=== PATIENT | female | born 1965 | race Caucasian/White ===

== ENCOUNTER → 2017-06-17 | Outpatient (CLI) | payer BC ==
[2017-06-17 16:08] LABS: BUN/CREATININE RATIO 19.9 (6.0-26.0); CALCIUM 9.5 mg/dL (8.4-10.2)
== END ==
LOC: LAB 14:39 → RAD 14:39
PROVIDERS: Physician Assistant
DX: M51.16 Intervertebral disc disorders with radiculopathy, lumbar region (principal); Q76.49 Other congenital malformations of spine, not associated with scoliosis; Z79.899 Other long term (current) drug therapy

== ENCOUNTER → 2017-06-20 | Outpatient (CLI) | payer BC | LOC: RAD 15:30 | DX: M51.17 Intervertebral disc disorders with radiculopathy, lumbosacral region (principal); M48.07 Spinal stenosis, lumbosacral region; Z88.8 Allergy status to other drugs, medicaments and biological substances ==

== ENCOUNTER 2017-06-25 23:05 | Emergency (ER) | payer BC ==
[~2017-06-25] VITALS: Ht 165.1 cm; Wt 84.1 kg
[2017-06-25] MEDS ORDERED: LITHIUM CARBON300 M3 PO (23:08)
[2017-06-25] MEDS ORDERED: LOPID600 MG (23:09)
[2017-06-25] MEDS ORDERED: PAXIL10 M1 (23:09)
[2017-06-25] MEDS ORDERED: AMITIZA8 MCG (23:09)
[2017-06-25] MEDS ORDERED: SYNTHROID0.075 MG (23:09)
[2017-06-25] MEDS ORDERED: PROGESTERONE WE1 PO3 (23:09)
[2017-06-25] MEDS ORDERED: PROTONIX20 M1 (23:09)
[2017-06-26] MEDS ORDERED: PERCOCET 325 MG1 TA2 PO (00:46)
[2017-06-26] MEDS ORDERED: KETOROLAC10 MG PO (00:46)
[2017-06-26] MEDS ORDERED: WALKER (00:46)
[2017-06-26 01:00] VITALS: BP 112/70
== END 2017-06-26 01:00 | disposition home or self-care (01) ==
LOC: ED 23:05
DX: M51.16 Intervertebral disc disorders with radiculopathy, lumbar region (principal); M21.371 Foot drop, right foot; F32.9 Major depressive disorder, single episode, unspecified; E03.9 Hypothyroidism, unspecified; K21.9 Gastro-esophageal reflux disease without esophagitis; E78.5 Hyperlipidemia, unspecified
CPT/HCPCS: J1885

== ENCOUNTER → 2017-06-30 | Outpatient (CLI) | payer BC ==
[2017-06-26 01:00] VITALS: BP 112/70
[~2017-06-30] MED LIST: AMITIZA8 MCG; KETOROLAC10 MG PO; LITHIUM CARBON300 M3 PO; LOPID600 MG; PAXIL10 M1; PERCOCET 325 MG1 TA2 PO; PROGESTERONE WE1 PO3; PROTONIX20 M1; SYNTHROID0.075 MG; WALKER
[2017-06-30 12:17] LABS: HEMATOCRIT 43.7 % (37.0-47.0); HEMOGLOBIN 14.1 g/dL (12.5-16.0); MEAN PLATELET VOLUME 10.9 fl (7.4-10.4); RED BLOOD COUNT 4.76 M/mm3 (4.10-5.30); RED CELL DISTRIBUTION WIDTH 13.9 % (11.5-14.5); WHITE BLOOD COUNT 5.7 K/mm3 (4.8-10.8)
[2017-06-30 12:20] LABS: PROTHROMBIN TIME 9.7 SECONDS (9.0-12.0)
[2017-06-30 12:22] LABS: BUN/CREATININE RATIO 15.8 (6.0-26.0); POTASSIUM 4.7 mmol/L (3.6-5.0)
[2017-06-30 13:04] LABS: URINE APPEARANCE CLEAR; URINE BILIRUBIN NEGATIVE (NEGATIVE); URINE BLOOD NEGATIVE (NEGATIVE); URINE COLOR YELLOW; URINE GLUCOSE NEGATIVE (NEGATIVE); URINE KETONE NEGATIVE (NEGATIVE); URINE LEUKOCYTE ESTERASE NEGATIVE (NEGATIVE); URINE NITRATE NEGATIVE (NEGATIVE); URINE PROTEIN(semi-quant) NEGATIVE (NEGATIVE); URINE UROBILINOGEN NORMAL (NORMAL); URINE WBC 0-1 /hpf (0-3)
== END ==
LOC: LAB 11:38
DX: M51.16 Intervertebral disc disorders with radiculopathy, lumbar region (principal)

== ENCOUNTER 2017-08-24 11:30 | Outpatient (RCR) | payer BC | END 2017-08-24 12:00 | disposition home or self-care (01) | LOC: PT 11:30 | DX: Z47.89 Encounter for other orthopedic aftercare (principal) ==

== ENCOUNTER → 2018-06-30 | Outpatient (CLI) | payer OTHER ==
[2018-06-30 11:22] LABS: POTASSIUM 4.7 mmol/L (3.6-5.0)
== END ==
LOC: LAB 10:16
PROVIDERS: Psychiatry & Neurology Psychiatry
DX: Z79.899 Other long term (current) drug therapy (principal)